=== PATIENT | female | born 1990 | race Caucasian/White ===

== ENCOUNTER 2016-10-04 02:55 | Emergency (ER) | payer SELFPAY | END 2016-10-04 03:20 | disposition home or self-care (01) | LOC: D.ER 02:55 | DX: K02.9 Dental caries, unspecified (principal); K08.89 Other specified disorders of teeth and supporting structures; E11.9 Type 2 diabetes mellitus without complications; F17.200 Nicotine dependence, unspecified, uncomplicated ==